=== PATIENT | female | born 1960 | race Caucasian/White ===

== ENCOUNTER → 2020-06-02 | Outpatient (CLI) | payer OTHER ==
[2020-06-02 13:17] LABS: HEMOGLOBIN 13.8 gm/dl (12.3-15.3); RED BLOOD COUNT 4.36 M/UL (4.00-5.10); WHITE BLOOD COUNT 7.7 K/UL (4.5-11.0)
[2020-06-02 13:38] LABS: BUN/CREATININE RATIO 25 (0-10)
[2020-06-03 12:13] LABS: ANGIOTENSIN-CONVERTING ENZYME 95 U/L (14-82); RHEUMATOID ARTHRITIS FACTOR <10.0 IU/mL (0.0-13.9); RNP ANTIBODIES <0.2 AI (0.0-0.9); SJOGREN'S ANTI-SS-A <0.2 AI (0.0-0.9); SMITH ANTIBODIES <0.2 AI (0.0-0.9)
[2020-06-04 00:08] LABS: CCP ANTIBODIES IGG/IGA 4 units (0-19)
== END ==
LOC: LAB 12:30
PROVIDERS: Internal Medicine
DX: M79.672 Pain in left foot (principal); M79.671 Pain in right foot; M79.641 Pain in right hand; M79.642 Pain in left hand; R53.83 Other fatigue; M79.10 Myalgia, unspecified site; Z79.1 Long term (current) use of non-steroidal anti-inflammatories (NSAID)
CPT/HCPCS: 36415; 73130; 73630; 80053; 82164; 82728; 83520; 85025; 85652; 86038; 86140; 86200; 86235; 86431

== ENCOUNTER → 2020-06-30 | Outpatient (CLI) | payer OTHER ==
[2020-07-01 17:13] LABS: A/G RATIO 0.7 (0.7-1.7); ALBUMIN 3.1 g/dL (2.9-4.4); ALPHA-1-GLOBULIN 0.3 g/dL (0.0-0.4); ALPHA-2-GLOBULIN 0.9 g/dL (0.4-1.0); BETA GLOBULIN 1.4 g/dL (0.7-1.3); GAMMA GLOBULIN 1.5 g/dL (0.4-1.8); GLOBULIN, TOTAL 4.2 g/dL (2.2-3.9); M-SPIKE Not Observed g/dL (Not Observed); PROTEIN, TOTAL, SERUM 7.3 g/dL (6.0-8.5)
== END ==
LOC: LAB 12:14
PROVIDERS: Internal Medicine
DX: D89.89 Other specified disorders involving the immune mechanism, not elsewhere classified (principal); R76.8 Other specified abnormal immunological findings in serum; M25.50 Pain in unspecified joint; G89.29 Other chronic pain; R79.89 Other specified abnormal findings of blood chemistry; R70.0 Elevated erythrocyte sedimentation rate; R53.83 Other fatigue; Z86.2 Personal history of diseases of the blood and blood-forming organs and certain disorders involving the immune mechanism
CPT/HCPCS: 36415; 71046; 82330; 82728; 84155; 84165; 85549; 86140